=== PATIENT | female | born 1950 | race Caucasian/White ===

== ENCOUNTER 2018-05-12 13:54 | Emergency (ER) | payer MEDICARE, BC, SELFPAY ==
[2018-05-12 15:12] LABS: BASO % 0.2 % (0.0-1.0); HEMATOCRIT 37.9 % (36.0-47.0); HEMOGLOBIN 13.1 g/dl (12.0-15.5); IMMATURE GRANULOCYTE % 0.5 % (0-3.0); LYMPH # 1.3 10^3/uL (1.5-4.5); LYMPH % 10.8 % (24.0-44.0); MEAN CORPUSCULAR HEMOGLOBIN 33.2 pg (27.0-33.0); MEAN CORPUSCULAR HGB CONC 34.6 g/dl (32.0-36.5); MEAN CORPUSCULAR VOLUME 96.2 fl (80.0-96.0); MONO # 0.8 10^3/uL (0.0-0.8); MONO % 6.9 % (0.0-5.0); NEUTROPHILS # 9.5 10^3/uL (1.8-7.7); NEUTROPHILS % 81.6 % (36.0-66.0); PLATELET COUNT, AUTOMATED 215 10^3/uL (150-450); RED BLOOD COUNT 3.94 10^6/uL (4.00-5.40); RED CELL DISTRIBUTION WIDTH 14.1 % (11.5-14.5); WHITE BLOOD COUNT 11.7 10^3/uL (4.0-10.0)
[2018-05-12 16:18] LABS: INR 0.96; PROTHROMBIN TIME 12.9 SECONDS (12.1-14.4)
[2018-05-12 16:31] LABS: ALBUMIN 4.2 GM/DL (3.2-5.2); ALBUMIN/GLOBULIN RATIO 1.91 (1.00-1.93); ALKALINE PHOSPHATASE 76 U/L (45-117); ALT/SGPT 41 U/L (12-78); ANION GAP 13 MEQ/L (8-16); AST/SGOT 72 U/L (7-37); BILIRUBIN,DIRECT 0.3 MG/DL (0.0-0.2); BILIRUBIN,TOTAL 1.4 MG/DL (0.2-1.0); BLOOD UREA NITROGEN 14 MG/DL (7-18); CALCIUM LEVEL 8.4 MG/DL (8.8-10.2); CARBON DIOXIDE LEVEL 24 MEQ/L (21-32); CHLORIDE LEVEL 104 MEQ/L (98-107); ETHYL ALCOHOL (ETHANOL) 0.004 % (0.000-0.010); GLOMERULAR FILTRATION RATE > 60.0 (>45); GLUCOSE, FASTING 71 MG/DL (70-100); MAGNESIUM LEVEL 1.9 MG/DL (1.8-2.4); POTASSIUM SERUM 3.8 MEQ/L (3.5-5.1); SODIUM LEVEL 141 MEQ/L (136-145); TOTAL PROTEIN 6.4 GM/DL (6.4-8.2); TROPONIN I 1.27 NG/ML (< 0.10)
[2018-05-12 16:41] LABS: CK-MB VALUE MASS 19.5 NG/ML (<3.6); CPK CREATINE PHOSPHOKINASE 3139 U/L (26-192); MB/CK RELATIVE INDEX 0.62 (< OR =4)
[2018-05-12 18:17] LABS: PARTIAL THROMBOPLASTIN TIME 23.2 SECONDS (25.4-37.6)
[2018-05-12] MEDS: LORazepam 2 MG/ML VIAL (J2060) IV (18:31)
[2018-05-12] MEDS: NS 1,000 ML IV (18:44)
== END 2018-05-12 19:17 | disposition short-term general hospital (02) ==
LOC: M ED 13:54
DX: I21.4 Non-ST elevation (NSTEMI) myocardial infarction (principal); F10.20 Alcohol dependence, uncomplicated; M62.82 Rhabdomyolysis; R94.31 Abnormal electrocardiogram [ECG] [EKG]; F17.210 Nicotine dependence, cigarettes, uncomplicated
CPT/HCPCS: J2060

== ENCOUNTER → 2018-06-30 | Outpatient (CLI) | payer MEDICARE, BC | LOC: M OUTALCOH 10:10 | DX: Z13.9 Encounter for screening, unspecified (principal); F10.20 Alcohol dependence, uncomplicated | CPT/HCPCS: H0001 ==

== ENCOUNTER 2018-09-01 13:42 | Outpatient (RCR) | payer MEDICARE, BC | END 2018-09-15 | LOC: M OUTALCOH 13:42 | DX: F10.20 Alcohol dependence, uncomplicated (principal); F17.200 Nicotine dependence, unspecified, uncomplicated | CPT/HCPCS: H0050 ==

== ENCOUNTER → 2019-01-14 | Outpatient (CLI) | payer MEDICARE, BC ==
--- NOTE | 2019-01-14 15:03 | REP ---
LUMBAR SPINE, FIVE VIEWS: HISTORY: Sciatica. There is no acute fracture. There is an old compression fracture of the T12 vertebral body with minimal height loss. The lumbar intervertebral discs are decreased in height consistent with disc degeneration. There is narrowing of the L4-5 and L5-S1 facet joints. There is sclerosis at the L5-S1 level. There are 6 mm of grade 1 spondylolisthesis of L5 on S1. The bony structure is osteopenic. IMPRESSION: Degenerative change as described above. Electronically Signed by Faheem Guillen MD 01/14/2019 03:24 P
== END ==
LOC: M WUC 14:11
PROVIDERS: ATTEND Internal Medicine
DX: M51.36 Other intervertebral disc degeneration, lumbar region (principal); M51.37 Other intervertebral disc degeneration, lumbosacral region

== ENCOUNTER → 2019-03-21 | Outpatient (CLI) | payer MEDICARE, BC ==
[2019-03-21 10:19] LABS: BLOOD UREA NITROGEN 13 MG/DL (7-18); CREATININE FOR GFR 0.93 MG/DL (0.55-1.30); GLOMERULAR FILTRATION RATE > 60.0 (>45)
== END ==
LOC: M WUC 08:22
PROVIDERS: ATTEND Pain Medicine Interventional Pain Medicine
DX: M54.16 Radiculopathy, lumbar region (principal)

== ENCOUNTER → 2019-03-23 | Outpatient (CLI) | payer MEDICARE, BC ==
[~2019-03-23] MED LIST: PROHANCE 279.3MG/ML 15ML VIAL (A9576) As Ordered ONE
--- NOTE | 2019-03-23 14:59 | REP ---
MRI LUMBAR SPINE WITHOUT AND WITH IV CONTRAST: HISTORY: Lumbar radiculopathy. Soft tissue edema on prior MRI, rule out infection at the L2-3 level. No comparison MRI study is available. Comparison radiographs are from January 14, 2019. GADOLINIUM ENHANCEMENT DOSE: 11 mL of intravenous ProHance. TECHNIQUE: Sagittal and axial T1- and T2-weighted scans are acquired in the usual fashion with and without fat saturation. Sequences include spin echo, turbo spin echo, and STIR imaging sequences. FINDINGS: Sagittal images demonstrate what appears to be an old healed fracture of the second sacral segment with some sacral exaggerated kyphosis as a result. In addition, there is evidence of a healing, acute or subacute sacral insufficiency fractures bilaterally in the alar regions of the first sacral segment. Cortical and medullary bone signal intensity are otherwise normal. Lumbar vertebral body heights are preserved. There is diffuse degenerative disc disease. This is most pronounced at T12-L1 and L3-4 and L4-5. There is a mild, 3 mm, degenerative L5-S1 spondylolisthesis. The tip of the conus medullaris is noted at L1-2. There is diffuse disc bulging at the T11-12 and T12-L1 disc levels without compression of the lower thoracic cord. At L1-L2, there is mild diffuse disc bulging as well indenting the ventral margin of the thecal sac. At L2-L3, there is mild diffuse disc bulging. No neural foraminal narrowing or central canal stenosis is seen. At L3-4, there is posterior disc bulging and osteophytic ridging indenting the thecal sac margin more on the right than the left. There is facet and ligamentum flavum hypertrophy. There is mild right-sided L3-4 neural foraminal narrowing. At L4-5, there is mild to moderate central canal stenosis due to diffuse disc bulging, ligamentum flavum and facet hypertrophy which is moderate, and developmentally short pedicles. AP dimension of the thecal sac at L4-5 in the midline is 8 mm. No definite neural foraminal encroachment is seen. At L5-S1, there is no evidence of disc protrusion or neural foraminal narrowing. Postcontrast images show enhancement in the sacral insufficiency fractures. No other abnormal enhancement is seen. IMPRESSION: 1. Healing bilateral sacral insufficiency fractures with evidence of old kyphosis in the second sacral segment in the midline suggesting an old second segment sacral fracture as well. 2. Degenerative spondylosis. 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 There is a grade 1, L4-5 spondylolisthesis. 3. More mild spondylosis changes are seen at L3-4 as well as T12-L1 and T11-12. There is no MR evidence to suggest discitis or other infection. Electronically Signed by Shoaib Lepe MD 03/23/2019 03:44 P
== END ==
LOC: M RAD 09:55
PROVIDERS: ATTEND Pain Medicine Interventional Pain Medicine
DX: M43.16 Spondylolisthesis, lumbar region (principal); M47.896 Other spondylosis, lumbar region; M47.895 Other spondylosis, thoracolumbar region; S32.10XA Unspecified fracture of sacrum, initial encounter for closed fracture; X58.XXXA Exposure to other specified factors, initial encounter; Y92.89 Other specified places as the place of occurrence of the external cause
CPT/HCPCS: 72158; A9576